=== PATIENT | male | born 2000 | race Caucasian/White ===

== ENCOUNTER 2018-03-18 14:33 | Emergency (ER) | payer MEDICAID ==
[~2018-03-18] VITALS: Ht 167.6 cm; Wt 90.7 kg
[2018-03-18 14:57] VITALS: BP 126/75
--- NOTE | 2018-03-18 15:00 | NUR ---
PATIENT PRESENTS TO ED WITH C/O R EAR PAIN X 3 DAYS. PT ALSO STATES FLU SYMPTOMS OF RUNNY NOSE, SORE THROAT, COUGH X 3 DAYS. - N/V/D AT THIS TIME. PATIENT STATED PAIN LEVEL 3/10; VSS; PATIENT POSITIONED FOR COMFORT; HOB ELEVATED; BEDRAILS UP X2; BED DOWN. ER MD MADE AWARE OF PT STATUS.
--- NOTE | 2018-03-18 15:28 | NUR ---
Patient being evaluated by physician at bedside.
[2018-03-18 17:17] VITALS: BP 126/75
--- NOTE | 2018-03-18 17:17 | NUR ---
Patient discharged with v/s stable. Written and verbal after care instructions given and explained. Patient alert, oriented and verbalized understanding of instructions. Ambulatory with steady gait. All questions addressed prior to discharge. ID band removed. Patient advised to follow up with PMD. Rx of MOTRIN, DIMETAPP, AMOXICILLIN, OCEAN NASAL SOLUTION given. Patient educated on indication of medication including possible reaction and side effects. Opportunity to ask questions provided and answered.
== END 2018-03-18 17:17 | disposition home or self-care (01) ==
LOC: MED 14:33
DX: H66.91 Otitis media, unspecified, right ear (principal); J02.9 Acute pharyngitis, unspecified
CPT/HCPCS: 99283

== ENCOUNTER 2019-11-27 15:14 | Emergency (ER) | payer MEDICAID, OTHER ==
[~2019-11-27] VITALS: Ht 167.6 cm; Wt 99.8 kg
[2019-11-27 15:17] VITALS: BP 161/88
--- NOTE | 2019-11-27 15:25 | NUR ---
STREP SWAB COLLECTED
--- NOTE | 2019-11-27 15:25 | NUR ---
C/O THROAT PAIN X 3 DAYS AWOKE TODAY UNABLE TO SWALLOW WITHOUT PAIN AND LEFT EAR PAIN---DENIES F/C , NO N/V/D----NO DROOLING OR ACCESSORY MUSCLE USE NOTED
--- NOTE | 2019-11-27 15:26 | NUR ---
Patient ambulated to bed 2. RN evaluating patient at bedside.
--- NOTE | 2019-11-27 15:32 | NUR ---
19 Y/O M C/C SORE THROAT X 3 DAYS. PER PT PROBLEMS WITH TONSILS. PAIN 11/06. TAKEN IBUPROFEN. PT PRESENTS WITH INFLAMED BILATERAL TONSILS. EUPNIC,VSS,AMBULATORY,A/OX4. NKA. NO HX. NO SX. NO RX. NO NVD. DENIES DIZZINESS. SIDE RAIL X1.
[2019-11-27] MEDS ORDERED: DEXAMETHASONE 10 MG/ML VIAL IM ONE (15:45)
[2019-11-27] MEDS ORDERED: cefTRIAXone 1,000 MG in LIDOCAINE MPF 1% 2.1 ML IM ONE (15:45)
[2019-11-27] MEDS ORDERED: cefTRIAXone 1,000 MG VIAL ONE (15:49)
[2019-11-27] MEDS ORDERED: LIDOCAINE MPF 1% 5 ML ONE (15:49)
[2019-11-27] MEDS ORDERED: KETOROLAC 30 MG/ML VIAL IM STA (15:50)
[2019-11-27 16:09] VITALS: BP 142/80
--- NOTE | 2019-11-27 16:10 | NUR ---
Patient discharged with v/s stable. Written and verbal after care instructions given and explained. Patient alert, oriented and verbalized understanding of instructions. Ambulatory with steady gait. All questions addressed prior to discharge. ID band removed. Patient advised to follow up with PMD. Rx of IBUPROFEN,AUGMENTIN given. Patient educated on indication of medication including possible reaction and side effects. Opportunity to ask questions provided and answered.
== END 2019-11-27 16:10 | disposition home or self-care (01) ==
LOC: MED 15:14
DX: J36 Peritonsillar abscess (principal); R03.0 Elevated blood-pressure reading, without diagnosis of hypertension
CPT/HCPCS: 87081; 96372; 99284; J0696; J1100; J1885; J2001; 96374

== ENCOUNTER 2020-11-01 20:16 | Emergency (ER) | payer OTHER ==
[~2020-11-01] VITALS: Ht 167.6 cm; Wt 102.5 kg
[2020-11-01 20:47] VITALS: BP 139/82
--- NOTE | 2020-11-01 20:53 | NUR ---
PT AMBULATED TO LOBBY.
--- NOTE | 2020-11-01 21:25 | NUR ---
PT AMBULATED TO TRIAGE FOR ERMD EVAL. WITH EVEN AND STEADY GAIT.
[2020-11-01] MEDS ORDERED: LOPE-289 PO (21:43)
--- NOTE | 2020-11-01 22:00 | NUR ---
Patient discharged with v/s stable. Written and verbal after care instructions given and explained. Patient alert, oriented and verbalized understanding of instructions. Ambulatory with steady gait. All questions addressed prior to discharge. ID band removed. Patient advised to follow up with PMD. Rx of IMMODIUM given. Patient educated on indication of medication including possible reaction and side effects. Opportunity to ask questions provided and answered.
== END 2020-11-01 22:00 | disposition home or self-care (01) ==
LOC: MED 20:16
DX: R19.7 Diarrhea, unspecified (principal); R10.84 Generalized abdominal pain; R11.2 Nausea with vomiting, unspecified
CPT/HCPCS: 99282

== ENCOUNTER 2022-05-27 14:48 | Emergency (ER) | payer MEDICAID, OTHER ==
[~2022-05-27] VITALS: Ht 167.6 cm; Wt 92.1 kg
[~2022-05-27 14:48] MED LIST: LOPE-289 PO
[2022-05-27 15:00] VITALS: BP 135/80
--- NOTE | 2022-05-27 15:10 | NUR ---
22 Y/O MALE BIB SELF C/O SORE THROAT AND COUGH X5 DAYS, PER PT HAS BEEN TAKING THERAFLU NKA PMH: DENIES
[2022-05-27] MEDS ORDERED: IBUP-2213 PO (15:59)
[2022-05-27] MEDS ORDERED: PROM118S5 PO (15:59)
--- NOTE | 2022-05-27 16:09 | NUR ---
Patient discharged with v/s stable. Written and verbal after care instructions ABOUT UPPER RESPIRATORY INFECTION given and explained. Patient alert, oriented and verbalized understanding of instructions. Ambulatory with steady gait. All questions addressed prior to discharge. ID band removed. Patient advised to follow up with PMD. Rx of MOTRIN, PROMETHAZINE DM given. Patient educated on indication of medication including possible reaction and side effects. Opportunity to ask questions provided and answered.
--- NOTE | 2022-05-27 16:10 | NUR ---
SWABS HANDED TO LAB
== END 2022-05-27 16:09 | disposition home or self-care (01) ==
LOC: MED 14:48
DX: J06.9 Acute upper respiratory infection, unspecified (principal); Z20.822 Contact with and (suspected) exposure to COVID-19; Z79.899 Other long term (current) drug therapy
CPT/HCPCS: 99283